=== PATIENT | male | born 1965 | race Caucasian/White ===

== ENCOUNTER 2017-05-25 07:24 | Emergency (ER) | payer OTHER ==
[~2017-05-25] VITALS: Ht 177.8 cm; Wt 86.2 kg
[~2017-05-25 07:24] MED LIST: ACET-704 PO; ACTIFED PO; AZIT250T6 PO; CHOL4POW11 PO; DOCU100T11 PO; HYDR-2762 PO; LISI10TA2 PO; OXYC-327 PO; decadron PO
[2017-05-25] MEDS ORDERED: IV NORMAL SALINE 1,000ML 1,000 ML IV SCH (07:40)
[2017-05-25] MEDS ORDERED: ONDANSETRON PF 4 MG/2 ML VIAL. IV ONE (07:45)
[2017-05-25] MEDS ORDERED: KETOROLAC 30 MG/ML VIAL. IV ONE (08:15)
[2017-05-25] MEDS ORDERED: IOHEXOL 240 MG/ML 50ML VIAL. PO ONE (08:15)
[2017-05-25] MEDS ORDERED: FAMOTIDINE 20 MG/2 ML VIAL IVP ONE (08:15)
[2017-05-25] MEDS ORDERED: IOHEXOL 300 MG/ML 75 ML VIAL. IV ONE (08:15)
[2017-05-25 08:31] LABS: BASO % 0 % (0-3); EOS # 0.1 x10^3/uL (0.0-0.7); EOS % 1 % (0-3); HEMATOCRIT 43.1 % (39.0-53.0); HEMOGLOBIN 15.4 g/dL (13.0-17.5); LYMPH # 1.6 x10^3/uL (1.0-4.8); LYMPH % 24 % (24-48); MEAN CORPUSCULAR HEMOGLOBIN 30 pg (25-35); MEAN CORPUSCULAR HGB CONC 36 g/dL (31-37); MEAN CORPUSCULAR VOLUME 84 fL (79-100); MONO # 0.6 x10^3/uL (0.0-1.1); MONO % 9 % (0-9); NEUT # 4.5 x10^3uL (1.8-7.7); NEUT % 66 % (31-73); PLATELET COUNT 245 x10^3/uL (140-400); RED BLOOD COUNT 5.11 x10^6/uL (4.30-5.70); RED CELL DISTRIBUTION WIDTH 13.5 % (11.5-14.5); WHITE BLOOD COUNT 6.8 x10^3/uL (4.0-11.0)
--- NOTE | 2017-05-25 08:38 | PHYS DOC ---
General Chief Complaint: GI PROBLEM Stated Complaint: ABDOMINAL PAIN Time Seen by MD: 07:34 Source: patient Exam Limitations: no limitations Problems: History of Present Illness Initial Comments Patient is a 51-year-old male who typically follows at [facility] coming to the emergency department complaining of abdominal discomfort. Patient states that he developed generalized abdominal discomfort approximately 7 PM yesterday it let up around 0100. Discomfort woke him this morning about 0500, pt has had bloating and burping and belching and increased GERD symptoms some nausea but no vomiting. Symptoms are consistent with prior small bowel obstructions. Patient has history of being kicked in the abdomen by a horse at the age of 14 which ruptured his duodenum he's had multiple surgical procedures since that time including several for lysis of adhesions. He's also had 2 herniorrhaphies. He states the right now his pain is under control but he does wax and wane becoming severe and sharp at times. He denies any fever chills sweats or myalgias no chest pain or shortness of breath. Last PO yesterday 1730 Last BM yesterday nl ED VS: 98, 74, 22, 140/95, 97% RA Timing/Duration: other Severity: moderate Modifying Factors: worse with eating, worse with movement, improves with rest Associated Symptoms: nausea/vomiting, other Allergies: Coded Allergies: lactose (Verified Allergy, Intermediate, 02/06/16) Past Medical History Medical History: other (chronic diarrhea, small bowel obstruction) Surgical History: other (ruptured duodenum, 2 herniorrhaphies, adhesion lysis) Social History Smoker: non-smoker Alcohol: none Drugs: none Review of Systems Constitutional: denies chills, denies diaphoresis, denies fever, denies malaise Respiratory: denies cough, denies shortness of breath Cardiovascular: denies chest pain, denies palpitations Gastrointestinal: see HPI Genitourinary: denies dysuria, denies frequency, denies hematuria Musculoskeletal: denies back pain, denies joint swelling, denies neck pain Psychiatric/Neurological: denies headache, denies numbness, denies paresthesia Physical Exam General Appearance: WD/WN, no apparent distress Ear, Nose, Throat: hearing grossly normal, normal ENT inspection Neck: non-tender, supple Respiratory: normal breath sounds, no respiratory distress Cardiovascular: normal peripheral pulses, regular rate, rhythm Gastrointestinal: soft (mildly distended, generalized tenderness to palpation without rebound guarding or mass, bowel sounds diminished) Back: no CVA tenderness, no vertebral tenderness Extremities: non-tender, normal inspection 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 PHYSICIAN: GALEN ROB DO REASON: sbo PROCEDURE: CT ABD PELV W/ORAL&IV CONTRAST CT of the abdomen and pelvis with contrast 05/25/2017 Indication: Small bowel obstruction. Comparison study: None available Technique: Multidetector CT imaging of the abdomen and pelvis is obtained following the administration of IV and enteric contrast Findings: Linear opacities are seen in the bilateral lower lobes and to lesser degree lingula findings represent atelectasis or scarring. Infiltrate is less likely. Prior cholecystectomy is noted. Allowing for this the liver is grossly unremarkable. Spleen is within normal limits. The adrenal glands are grossly unremarkable. The kidneys demonstrate no acute abnormality. Pancreas is grossly unremarkable. No pneumoperitoneum is identified. No free fluid is seen in the abdomen or pelvis. The bladder is grossly unremarkable. Enteric contrast is noted within the stomach. Stomach is nondilated. Contrast extends to the proximal small bowel large bowel is nondilated. The appendix is normal. There is no abnormal dilated loop of small bowel central abdomen with stool-like contents. Spelled it measures up to 5 cm in approximate diameter. There is decompression of both proximal and distal small bowel. Contrast does not reach this portion of the bowel. Findings are consistent with a small bowel obstruction. A transition point appears to be present in the left midabdomen can best be seen on sagittal image 24. No evidence of acute osseous abnormality is identified. Impression: Small bowel obstruction with dilated loops of small bowel, feculent appearing small bowel content, and transition point left mid abdomen. Note that given distal and proximal small bowel decompression closed-loop obstruction cannot be completely excluded. PQRS Compliance Statement: One or more of the following individualized dose reduction techniques were utilized for this examination: 1. Automated exposure control 2. Adjustment of the mA and/or kV according to patient size 3. Use of iterative reconstruction technique DICTATED AND SIGNED BY: BRUCE HERNANDEZ MD DATE: 05/25/17 0935 CC: STEF PRINCE; GALEN ROB DO ~ 1010: I discussed the patient with on-call general surgeon Dr. Peng. After thorough discussion of the patient's history, presentation, and emergency department course and findings he requests that the patient be transferred to [facility] admitted to the hospitalist service. He requested we place an NG tube and keep the patient's pain controlled. 10:30: I discussed the patient with Dr. Alvarez who accepts inpatient MedSurg admission via EMS transfer. Impression: Closed-loop bowel obstruction Repeat plain films confirm NGT tip properly placed in stomach Departure Time of Disposition: 10:32 Disposition: 02 XFER SHT-TRM HOSP Diagnosis: closed loop bowel obstruction Condition: STABLE Additional Instructions: EMS transfer to [facility] for inpatient MedSurg admission Dr. Alvarez is accepting Dr. Peng general surgery to be consulted. GALEN ROB DO May 25, 2017 08:38
[2017-05-25 08:49] LABS: ALBUMIN 3.8 g/dL (3.4-5.0); ALBUMIN/GLOBULIN RATIO 1.3 (1.0-1.7); CALCIUM 8.5 mg/dL (8.5-10.1); CREATININE 0.9 mg/dL (0.7-1.3); GFR 89.7; POTASSIUM 3.7 mmol/L (3.5-5.1); TOTAL BILIRUBIN 2.4 mg/dL (0.2-1.0); TOTAL PROTEIN 6.7 g/dL (6.4-8.2)
--- NOTE | 2017-05-25 09:45 | RAD ---
CT of the abdomen and pelvis with contrast 05/25/2017 Indication: Small bowel obstruction. Comparison study: None available Technique: Multidetector CT imaging of the abdomen and pelvis is obtained following the administration of IV and enteric contrast Findings: Linear opacities are seen in the bilateral lower lobes and to lesser degree lingula findings represent atelectasis or scarring. Infiltrate is less likely. Prior cholecystectomy is noted. Allowing for this the liver is grossly unremarkable. Spleen is within normal limits. The adrenal glands are grossly unremarkable. The kidneys demonstrate no acute abnormality. Pancreas is grossly unremarkable. No pneumoperitoneum is identified. No free fluid is seen in the abdomen or pelvis. The bladder is grossly unremarkable. Enteric contrast is noted within the stomach. Stomach is nondilated. Contrast extends to the proximal small bowel large bowel is nondilated. The appendix is normal. There is no abnormal dilated loop of small bowel central abdomen with stool-like contents. Spelled it measures up to 5 cm in approximate diameter. There is decompression of both proximal and distal small bowel. Contrast does not reach this portion of the bowel. Findings are consistent with a small bowel obstruction. A transition point appears to be present in the left midabdomen can best be seen on sagittal image 24. No evidence of acute osseous abnormality is identified. Impression: Small bowel obstruction with dilated loops of small bowel, feculent appearing small bowel content, and transition point left mid abdomen. Note that given distal and proximal small bowel decompression closed-loop obstruction cannot be completely excluded. PQRS Compliance Statement: One or more of the following individualized dose reduction techniques were utilized for this examination: 1. Automated exposure control 2. Adjustment of the mA and/or kV according to patient size 3. Use of iterative reconstruction technique
[2017-05-25 10:07] LABS: BACTERIA,URINE 0 /HPF (0-FEW); BILIRUBIN,URINE NEG (NEG); CLARITY,URINE CLEAR; COLOR,URINE STRAW; GLUCOSE,URINE NEG (NEG); NITRITE,URINE NEG (NEG); RBC,URINE 0 /HPF (0-2); UROBILINOGEN,URINE 0.2 mg/dL (0.2 mg/dL); WBC,URINE 0 /HPF (0-4)
[2017-05-25 10:08] LABS: SQUAMOUS EPITHELIAL CELL,UR OCC /LPF
[2017-05-25 11:59] VITALS: BP 138/93
--- NOTE | 2017-05-25 12:05 | RAD ---
CHEST AP ONLY History: tube placement, small bowel obstruction Comparison: None. Findings: Single AP upright portable view of the chest is submitted. Enteric catheter tip is likely in the region of stomach, catheter somewhat poorly visualized more distally. Heart size is considered within normal limits given technique. There is suboptimal inspiration, low lung volumes. There is no dependent pleural fluid or pneumothorax. There is no lobar infiltrate. There may be some atelectasis left lung base. Impression: 1. Enteric catheter tip is likely in the stomach although distal catheter poorly evaluated. 2. There is some atelectasis left lung base. Electronically signed by: Kan Mcdonald MD (05/25/2017 12:02 PM) [id number]
--- NOTE | 2017-05-25 12:07 | RAD ---
PORTABLE CHEST 1V History: Tube check, small bowel obstruction Comparison: None. Findings: AP upright view of the chest centered upon the diaphragms is submitted. Tip of enteric catheter courses into the stomach. No free air is identified. There are gas dilated loops of small bowel. Impression: 1. Tip of enteric catheter is in the stomach. 2. There are findings of small bowel obstruction. Electronically signed by: Kan Mcdonald MD (05/25/2017 12:03 PM) [id number]
== END 2017-05-25 12:10 | disposition short-term general hospital (02) ==
LOC: ER 07:24
DX: K56.699 Other intestinal obstruction unspecified as to partial versus complete obstruction (principal); K21.9 Gastro-esophageal reflux disease without esophagitis
CPT/HCPCS: 36415; 43752; 71010; 74177; 80053; 81001; 83690; 85025; 96361; 96374; 96375; 96376; 99285; J1885; J2405; J3010; Q9966; Q9967; S0028; J7030